=== PATIENT | male | born 2000 | race Two or more races ===

== ENCOUNTER 2023-11-01 07:53 | Inpatient (IN) | payer MEDICAID, OTHER ==
[~2023-11-01] VITALS: Ht 180.3 cm; Wt 79.8 kg
[2023-11-01 08:57] LABS: COVID AG,FIA SOURCE NASAL SWAB
[2023-11-01 09:09] LABS: BASOPHILS % (AUTO) 0.2 % (0.0-2.0); EOSINOPHILS % (AUTO) 0.1 % (1.0-6.0); HEMATOCRIT 40.7 % (41-53); HEMOGLOBIN 13.8 g/dL (13.5-17.5); LYMPHOCYTES # (AUTO) 0.9 K/uL (1.0-4.8); LYMPHOCYTES % (AUTO) 8.8 % (22.0-44.0); MEAN CORPUSCULAR HEMOGLOBIN 30.7 pg (26.0-34.0); MEAN CORPUSCULAR VOLUME 91 fL (80-100); MONOCYTES # (AUTO) 0.4 K/uL (0.1-1.0); MONOCYTES % (AUTO) 4.2 % (2.0-9.0); NEUTROPHILS # (AUTO) 9.3 K/uL (1.8-7.7); PLATELET COUNT (AUTO) 262 K/uL (150-450); RED CELL DISTRIBUTION WIDTH 12.8 % (11.5-14.5); WHITE BLOOD COUNT (AUTO) 10.7 K/uL (4.5-11.0)
[2023-11-01 09:18] LABS: NEUTROPHILS % (AUTO) 86.7 % (40.0-70.0)
[2023-11-01 09:21] LABS: ANION GAP 12 mmol/L (8-16); CALCIUM, TOTAL 9.6 mg/dL (8.8-10.5); CARBON DIOXIDE 27 mmol/L (22-29); CHLORIDE 101 mmol/L (98-107); CREATININE 1.08 mg/dL (0.60-1.30); GLOMERULAR FILTR. RATE CALC > 60 mL/min (>60); GLUCOSE,RANDOM 105 mg/dL (70-110); POTASSIUM 3.6 mmol/L (3.5-5.1); SODIUM SERUM 140 mmol/L (136-145); UREA NITROGEN, BLOOD 13 mg/dL (7-18)
[2023-11-01 09:27] LABS: ALANINE AMINOTRANSFERASE 24 U/L (12-78); ALBUMIN 4.1 g/dL (3.4-5.0); ALKALINE PHOSPHATASE 107 U/L (46-116); ASPARTATE AMINOTRANSFERASE 19 U/L (15-37); BILIRUBIN,TOTAL 0.8 mg/dL (0.1-1.0); TOTAL PROTEIN, SERUM 9.1 g/dL (6.4-8.2)
[2023-11-01 09:29] LABS: ALCOHOL, BLOOD (SERUM) < 3 mg/dL (0-10)
[2023-11-01 09:30] LABS: SARS-COV2 (COVID) ANTIGEN,FIA Negative (Negative)
[2023-11-01 09:47] LABS: RBC MORPHOLOGY COMMENT NORMAL RBC MORPH
[2023-11-01] MEDS: DiphenhydrAMINE HCL 50 MG/ML VIAL IM ONE ×2 (11:21→18:44)
[2023-11-01] MEDS: HALOPERIDOL LACTATE 5 MG/ML VIAL IM ONE ×2 (11:21→18:45)
[2023-11-01] MEDS: LORazepam 2 MG/ML VIAL IM ONE ×2 (11:22→18:45)
[2023-11-01] MEDS ORDERED: LOPERAMIDE HCL 2 MG CAPSULE PO PRN (12:00)
[2023-11-01] MEDS ORDERED: TUBERCULIN, PURIFIED PROTEIN DERIVATIVE 5 TU/0.1 ML SYRINGE ID ONE (12:00)
[2023-11-01] MEDS ORDERED: MAGNESIUM HYDROXIDE SUSPENSION 30 ML UDCUP PO PRN (12:00)
[2023-11-01] MEDS ORDERED: MAG HYDROX/ALUMINUM HYD/SIMETH ES 30 ML SUSPENSION UDCUP PO PRN (12:00)
[2023-11-01] MEDS ORDERED: HydrOXYzine PAMOATE 50 MG CAPSULE PO PRN (12:00)
[2023-11-01] MEDS ORDERED: ACETAMINOPHEN 325 MG TABLET PO PRN (12:00)
[2023-11-01] MEDS ORDERED: GuaiFENesin/D-METHORPHAN [SUGAR-FREE] 200-20MG/10 ML SYRUP UDCUP PO PRN (12:00)
[2023-11-01 14:36] LABS: PH,URINE DRUG SCREEN 5.5 (5.0-8.0)
[2023-11-01 14:43] LABS: ALCOHOL, URINE DRUG SCREEN NEGATIVE (NEGATIVE); AMPHET/METH SCREEN,URINE NEGATIVE (NEGATIVE); BARBITURATE SCREEN, URINE NEGATIVE (NEGATIVE); BENZODIAZEPINES SCREEN,URINE NEGATIVE (NEGATIVE); CANNABINOID SCREEN,URINE POSITIVE (NEGATIVE); COCAINE SCREEN,URINE NEGATIVE (NEGATIVE); METHADONE SCREEN, URINE NEGATIVE (NEGATIVE); OPIATE SCREEN,URINE NEGATIVE (NEGATIVE); PHENCYCLIDINE SCREEN,URINE NEGATIVE (NEGATIVE)
[2023-11-01] MEDS: MELATONIN 5 MG TABLET PO SCH (20:38)
[2023-11-01] MEDS: OLANZapine 5 MG RAPDIS TABLET PO SCH (21:00)
[2023-11-01] MEDS: THIAMINE 100 MG TABLET PO SCH (21:00)
[2023-11-02 01:10] VITALS: BP 104/66; PULSE 69; RESP 18; TEMP 98.3
[2023-11-02 07:25] LABS: HEMOGLOBIN A1C 5.4 % (3.8-5.6)
[2023-11-02 07:43] LABS: CHOL/HDL RATIO 2.4 (4.2-7.3); FREE T4 (FREE THYROXINE) 1.72 ng/dL (0.76-1.46); THYROID STIMULATING HORMONE 0.43 uIU/mL (0.36-3.74)
[2023-11-02] MEDS: FOLIC ACID 1 MG TABLET PO SCH (10:37)
[2023-11-02] MEDS: MULTIVITAMINS WITH MINERALS, THERAPEUTIC TABLET PO SCH (10:38)
[2023-11-02] MEDS: OMEGA-3/DHA/EPA/FISH OIL 1,000 MG CAPSULE PO SCH (10:38)
[2023-11-02] MEDS: NALTREXONE HCL 50 MG TABLET PO SCH (10:42)
[2023-11-02 11:54] VITALS: BP 137/73; PULSE 98; RESP 18; TEMP 98.4
[2023-11-02] MEDS: OLANZapine 5 MG RAPDIS TABLET PO PRN (15:49)
[2023-11-02] MEDS: LORazepam 2 MG TABLET PO PRN (15:49)
[2023-11-02 21:50] VITALS: BP 131/68; PULSE 96; RESP 18; TEMP 98
[2023-11-03] MEDS: ZOLPIDEM TARTRATE 10 MG TABLET PO PRN (03:00)
[2023-11-03] MEDS: PROMETHAZINE HCL 25 MG TABLET PO PRN (12:09)
[2023-11-03 12:11] VITALS: BP 155/104; PULSE 94; RESP 17; TEMP 97.8
[2023-11-03] MEDS: OLANZapine 10 MG RAPDIS TABLET PO SCH (20:49)
[2023-11-03 20:50] VITALS: BP 138/85; PULSE 104; RESP 16; TEMP 97.4
[2023-11-04 08:09] VITALS: BP 125/88; PULSE 90; RESP 17; TEMP 97.2
[2023-11-04] MEDS: FLUoxetine HCL 20 MG CAPSULE PO SCH (08:26)
[2023-11-04] MEDS ORDERED: FLUO20CA36 PO (11:30)
[2023-11-04] MEDS ORDERED: MELA5TAB40 PO (11:30)
[2023-11-04] MEDS ORDERED: OLAN10TA26 PO (11:30)
[2023-11-04] MEDS ORDERED: OMEG-135 PO (11:30)
[2023-11-04] MEDS ORDERED: NALT50TA33 PO (11:30)
== END 2023-11-04 17:00 | disposition home or self-care (01) | DRG 750 ==
LOC: EMS 07:54 → 3EC 11:46
PROVIDERS: ADMIT Psychiatry & Neurology Psychiatry; ATTEND Psychiatry & Neurology Psychiatry
PROC: GZ72ZZZ Family Psychotherapy (ICD-10-PCS; principal; 2023-11-02)
PROC: GZ51ZZZ Individual Psychotherapy, Behavioral (ICD-10-PCS; 2023-11-02)
PROC: GZ56ZZZ Individual Psychotherapy, Supportive (ICD-10-PCS; 2023-11-04)
DX: F25.9 Schizoaffective disorder, unspecified (principal); F29 Unspecified psychosis not due to a substance or known physiological condition; F12.229 Cannabis dependence with intoxication, unspecified; Z20.822 Contact with and (suspected) exposure to COVID-19
CPT/HCPCS: 80053; 80061; 80307; 83036; 84439; 84443; 85025; 99285; G0480; J1200; J1630; J2060; Q9967